=== PATIENT | female | born 1950 | race Caucasian/White ===

== ENCOUNTER → 2022-03-10 12:20 | Outpatient (CLI) | payer MEDICARE, OTHER, SELFPAY ==
[2022-03-10 13:12] LABS: COVID19 -Nasal RAPID Negative (Negative)
== END ==
PROVIDERS: Referring Provider Internal Medicine; Visit Provider Internal Medicine
DX: Z20.822 Contact with and (suspected) exposure to COVID-19 (principal)
CPT/HCPCS: 87635; C9803

== ENCOUNTER → 2022-03-10 12:27 | Outpatient (CLI) | payer MEDICARE, OTHER, SELFPAY ==
--- NOTE | 2022-03-16 09:15 | PM.PFT.1 ---
Pulmonary Function Test Referral & Results Date Patient Seen: 03/10/22 Requesting provider: Gorge Williamson Results: The spirometry demonstrates an FVC of 2.69 L which is 91% of predicted. The FEV1 was measured at 2.17 L which is 97% of predicted. The FEV1/FVC ratio was 81 which is 106% of predicted. Interpretation: This study demonstrates normal forced spirometry
== END ==
PROVIDERS: Referring Provider Internal Medicine; Visit Provider Internal Medicine
DX: R05.3 Chronic cough (principal); R93.89 Abnormal findings on diagnostic imaging of other specified body structures; Z20.822 Contact with and (suspected) exposure to COVID-19
CPT/HCPCS: 87635; 94010; C9803

== ENCOUNTER → 2024-04-05 12:35 | Outpatient (CLI) | payer MEDICARE, OTHER, SELFPAY ==
--- NOTE | 2024-04-05 12:41 | DI.RAD.S_ITS ---
PROCEDURE: XR KNEE LT 3V INDICATIONS: KNEE PAIN TECHNIQUE: 3 views of the knee were acquired. COMPARISON: None. FINDINGS: Bones: No fractures or dislocations. Amjs-sf-szuogwby tricompartmental osteoarthritis is seen with joint space narrowing , subchondral sclerosis and tiny marginal osteophyte formation more notably in patellofemoral compartment. No significant patellar subluxation. No suspicious bony lesions. Soft tissues: Small suprapatella joint effusion. No suspicious soft tissue calcifications. IMPRESSION: No left knee fracture or dislocation. Fjyq-do-cqaaiway tricompartmental osteoarthritis more notably in patellofemoral compartment. Small joint effusion. Dictated by: Brian Park M.D. on 04/05/2024 at 17:19 Approved by: Brian Park M.D. on 04/05/2024 at 17:20
--- NOTE | 2024-04-05 12:41 | DI.RAD.S_ITS ---
PROCEDURE: XR KNEE RT 3V INDICATIONS: KNEE PAIN TECHNIQUE: 3 views of the knee were acquired. COMPARISON: None. FINDINGS: Bones: No fractures or dislocations. Moderate tricompartmental osteoarthritis is seen more notably in medial femoral tibial compartment with significant joint space narrowing, subchondral sclerosis and marginal osteophyte formation. No significant patellar subluxation. No suspicious bony lesions. Soft tissues: Small to moderate suprapatella joint effusion. No suspicious soft tissue calcifications. IMPRESSION: Moderate tricompartmental osteoarthritis most notably in medial femoral tibial compartment. No fracture or dislocation. Small to moderate suprapatellar joint effusion. Dictated by: Brian Park M.D. on 04/05/2024 at 17:20 Approved by: Brian Park M.D. on 04/05/2024 at 17:21
== END ==
DX: M25.462 Effusion, left knee (principal); M17.12 Unilateral primary osteoarthritis, left knee; M25.562 Pain in left knee; M25.561 Pain in right knee; W18.43XA Slipping, tripping and stumbling without falling due to stepping from one level to another, initial encounter
CPT/HCPCS: 73562

== ENCOUNTER → 2024-09-09 13:49 | Outpatient (CLI) | payer MEDICARE, OTHER, SELFPAY ==
--- NOTE | 2024-09-09 13:58 | DI.CT.S_ITS ---
PROCEDURE: CT HEAD/BRAIN WO CON INDICATIONS: vertigo TECHNIQUE: Noncontrast 4.5 mm thick angled axial sections acquired from the foramen magnum to the vertex, with coronal and sagittal reformats. For radiation dose reduction, the following was used: automated exposure control, adjustment of mA and/or kV according to patient size. COMPARISON: None. FINDINGS: Image quality: Diagnostic. CSF spaces: Basal cisterns are patent. No extra-axial fluid collections. The ventricles are symmetric in size and shape. Brain: No intracranial bleeds or masses. There is cerebral volume loss for age, with resultant ventricular and sulcal prominence. There are periventricular and deep white matter chronic small vessel ischemic changes. There is intracranial internal carotid artery atherosclerosis. Skull and face: Calvarium and visualized facial bones appear intact, without suspicious lesions. Sinuses: Visualized sinuses and mastoids are clear. IMPRESSION: No acute intracranial pathology. Dictated by: Edgar Silver M.D. on 09/09/2024 at 16:39 Approved by: Edgar Silver M.D. on 09/09/2024 at 16:40
--- NOTE | 2024-09-09 13:58 | DI.CT.S_ITS ---
PROCEDURE: CT ANGIO HEAD AND NECK INDICATIONS: Visual loss lasting 30 min TECHNIQUE: After the administration of intravenous contrast, 1 mm thick sections acquired from the aortic arch through the [place]. 3-dimensional [id number]-igacblgqxi (MIP) and/or volume rendering reformats were acquired of the central intracranial vasculature and neck separately. For radiation dose reduction, the following was used: automated exposure control, adjustment of mA and/or kV according to patient size. COMPARISON: None. FINDINGS: Image quality: Diagnostic. BRAIN: Please refer to same day CT of the head. HEAD CT ANGIOGRAPHY: Anterior circulation: Intracranial internal carotid arteries are normal in size and flow with atherosclerotic calcifications. The flow within the paired anterior cerebral arteries is normal and symmetric. The flow within the middle cerebral arteries is normal and symmetric. The anterior communicating artery is seen. No aneurysms are seen. Posterior circulation: Visualized portions of the vertebral arteries demonstrate normal caliber, and join to form a normal appearing basilar artery. Predominantly origin of the bilateral senior portfolio manager. Flow within the posterior cerebral arteries is normal and symmetric. No aneurysms are seen. NECK CT ANGIOGRAPHY: Carotid system: The great vessels demonstrate a conventional anatomy as they arise from the aortic arch. The origins of the common carotid arteries appear patent. The common carotid arteries demonstrate normal caliber and courses. The bifurcation regions are both widely patent. The internal carotid arteries demonstrate normal calibers and courses. Posterior circulation: The origins of the vertebral arteries both appear widely patent. The more superior extracranial portions of both vertebral arteries also demonstrate normal courses and calibers. They join to form a normal appearing basilar artery. Soft tissues: Visualized neck soft tissues demonstrate no suspicious abnormalities. No enlarged cervical lymph nodes by CT size criteria. Bones: No suspicious bony lesions. Visualized cervical spine appears normally aligned. Multilevel degenerative changes of the spine. IMPRESSION: No significant intracranial arterial abnormality is seen. No significant abnormality is seen within the arteries of the neck. Any quantitative measurements of stenosis were performed using NASCET criteria. Dictated by: Edgar Silver M.D. on 09/09/2024 at 16:40 Approved by: Edgar Silver M.D. on 09/09/2024 at 16:49
[2024-09-09 15:04] LABS: Estimated Glomerular Filt Rate > 60 mL/min (>60)
== END ==
LOC: CT 13:54
PROVIDERS: Radiology Diagnostic Radiology; Referring Provider Ophthalmology; Visit Provider Ophthalmology
DX: H53.123 Transient visual loss, bilateral (principal); I65.29 Occlusion and stenosis of unspecified carotid artery
CPT/HCPCS: 36415; 70450; 70496; 70498; 82565; Q9967